=== PATIENT | female | born 1975 | race Caucasian/White ===

== ENCOUNTER 2018-09-25 20:39 | Emergency (ER) | payer SELFPAY ==
[2018-09-25] MEDS ORDERED: Ketorolac Tromethamine 30 MG/ML VIAL ONE (21:06)
[2018-09-25] MEDS ORDERED: Cyclobenzaprine 10 MG TAB ONE (21:06)
== END 2018-09-25 21:36 | disposition home or self-care (01) ==
LOC: ERS 20:39
DX: M54.16 Radiculopathy, lumbar region (principal); I10 Essential (primary) hypertension; F41.9 Anxiety disorder, unspecified; F32.9 Major depressive disorder, single episode, unspecified; F43.10 Post-traumatic stress disorder, unspecified; Z79.899 Other long term (current) drug therapy
CPT/HCPCS: 96372; J1885

== ENCOUNTER 2018-11-03 20:56 | Emergency (ER) | payer SELFPAY | END 2018-11-03 22:10 | disposition home or self-care (01) | LOC: ERS 20:56 | DX: M54.2 Cervicalgia (principal); M54.9 Dorsalgia, unspecified; I10 Essential (primary) hypertension; F31.9 Bipolar disorder, unspecified; F41.9 Anxiety disorder, unspecified; F43.10 Post-traumatic stress disorder, unspecified; Z79.899 Other long term (current) drug therapy | CPT/HCPCS: 99281 ==